=== PATIENT | female | born 1985 | race African-American/Black ===

== ENCOUNTER → 2016-07-22 | Outpatient (CLI) | payer OTHER ==
[2016-07-22 14:10] LABS: TOTAL PROTEIN,URINE 46.1 mg/dl (0-11.9)
== END ==
LOC: LAB 12:49
PROVIDERS: ATTEND Specialist
DX: Z34.80 Encounter for supervision of other normal pregnancy, unspecified trimester (principal); R03.0 Elevated blood-pressure reading, without diagnosis of hypertension
CPT/HCPCS: 81050; 84157

== ENCOUNTER → 2016-08-03 | Outpatient (CLI) | payer OTHER ==
[2016-08-03 11:05] LABS: BASOPHILS % (AUTO) 0.4 % (0.2-1.0); EOSINOPHILS % (AUTO) 0.4 % (0.9-2.9); HEMATOCRIT 36.3 % (36.0-47.0); HEMOGLOBIN 12.3 g/dL (12.0-16.0); LYMPHOCYTES # (AUTO) 1.7 X10^3/uL (1.3-2.9); LYMPHOCYTES % (AUTO) 25.5 % (21.0-51.0); MEAN CORPUSCULAR HEMOGLOBIN 29.5 pg (27.0-34.0); MEAN CORPUSCULAR HGB CONC 33.9 g/dL (33.0-35.0); MEAN CORPUSCULAR VOLUME 86.9 fL (80.0-100.0); MEAN PLATELET VOLUME 11.8 fL (7.4-11.0); MONOCYTES # (AUTO) 0.7 x10^3/uL (0.3-0.8); MONOCYTES % (AUTO) 10.7 % (0.0-13.0); NEUTROPHILS # (AUTO) 4.1 x10^3/uL (2.2-4.8); PLATELET COUNT 151 X10^3/uL (150.0-450.0); RED BLOOD COUNT 4.18 X10^6/uL (3.5-5.4); RED CELL DISTRIBUTION WIDTH 13.4 % (11.6-16.5); WHITE BLOOD COUNT 6.5 X10^3/uL (3.6-10.0)
[2016-08-03 11:06] LABS: BILIRUBIN,URINE NEGATIVE (NEGATIVE); BLOOD/HEMOGLOBIN,URINE 3+ (NEGATIVE); GLUCOSE, URINE NEGATIVE (NEGATIVE); KETONES,URINE NEGATIVE (NEGATIVE); LEUKOCYTE ESTERASE ,URINE 1+ (NEGATIVE); NITRITES,URINE NEGATIVE (NEGATIVE); PROTEIN,URINE 4+ (NEGATIVE); UROBILINOGEN,URINE NORMAL (NORMAL)
[2016-08-03 11:13] LABS: APPEARANCE,URINE SLIGHTLY HAZY (CLEAR); BACTERIA,URINE TRACE /HPF (NEGATIVE); COLOR,URINE YELLOW (YELLOW); RBC,URINE 0-3 /HPF (NEGATIVE); SQUAMOUS EPITHELIAL CELL,UR MANY /HPF (NEGATIVE)
[2016-08-03 11:28] LABS: GIANT PLATELET NOTED; PLATELET MORPHOLOGY COMMENT ABNORMAL (NORMAL)
[2016-08-03 11:29] LABS: BLOOD UREA NITROGEN 5 mg/dL (7-18); CALCIUM 8.5 mg/dL (8.5-10.1); CARBON DIOXIDE 23.7 mmol/L (21-32); CHLORIDE 107 mmol/L (98-107); CREATININE 0.83 mg/dL (0.55-1.02); GLUCOSE 75 mg/dL (65-99); SODIUM 140 mmol/L (136-145); eGFR BLACK RACES > 60 (>60); eGFR NON BLACK RACES > 60 (>60)
== END ==
LOC: LAB 10:11
PROVIDERS: ATTEND Specialist
DX: Z01.818 Encounter for other preprocedural examination (principal); Z34.83 Encounter for supervision of other normal pregnancy, third trimester
CPT/HCPCS: 36415; 80048; 81001; 85025; 85610; 85730; 86592; 86850; 86900; 86901; 87086

== ENCOUNTER 2016-08-07 06:10 | Inpatient (IN) | payer OTHER ==
[2016-08-07] MEDS ORDERED: LR 1000 ML IV 1,000 ML IV ONE ×2 (06:41→07:18)
[2016-08-07] MEDS ORDERED: ANCEF VIAL 1 GM ONE (06:42)
[2016-08-07] MEDS ORDERED: NS 50 ML IV + SPIKE MINIBAG* 50 ML IV ONE (06:42)
[2016-08-07] MEDS ORDERED: ANCEF VIAL 1 GM 1 GM in NS 50 ML IV + SPIKE MINIBAG* 50 ML IV PRN (06:56)
[2016-08-07] MEDS ORDERED: D5 1/2 NS 1000 ML 1,000 ML IV SCH (06:56)
[2016-08-07] MEDS ORDERED: DURAMORPH ONE (07:08)
[2016-08-07] MEDS ORDERED: PEPCID 20 MG IV PREMIX* 20 MG/50 ML BAG IV ONE (07:08)
[2016-08-07] MEDS ORDERED: D5 1/2 NS 1000ML W PITOCIN 20 U/L 1,000 ML IV ONE (07:18)
[2016-08-07] MEDS ORDERED: NS IRRIGATION 1000 ML 1,000 ML IR ONE (08:15)
[2016-08-07 08:33] LABS: BILIRUBIN,URINE NEGATIVE (NEGATIVE); BLOOD/HEMOGLOBIN,URINE 4+ (NEGATIVE); GLUCOSE, URINE NEGATIVE (NEGATIVE); KETONES,URINE NEGATIVE (NEGATIVE); LEUKOCYTE ESTERASE ,URINE NEGATIVE (NEGATIVE); NITRITES,URINE NEGATIVE (NEGATIVE); PROTEIN,URINE 4+ (NEGATIVE); UROBILINOGEN,URINE NORMAL (NORMAL)
[2016-08-07] MEDS ORDERED: TORADOL 30 MG VIAL ONE (08:51)
[2016-08-07] MEDS ORDERED: PHENERGAN INJ 25 MG ONE (08:53)
[2016-08-07 08:55] LABS: APPEARANCE,URINE HAZY (CLEAR); BACTERIA,URINE TRACE /HPF (NEGATIVE); COLOR,URINE YELLOW (YELLOW); HYALINE CASTS, URINE FEW /LPF (NEGATIVE); MUCUS,URINE MODERATE /HPF (NEGATIVE); RENAL EPITHELIAL CELLS,URINE FEW /HPF (NEGATIVE); SQUAMOUS EPITHELIAL CELL,UR RARE /HPF (NEGATIVE)
[2016-08-07] MEDS ORDERED: PHENERGAN INJ 25 MG IVP PRN (08:56)
[2016-08-07] MEDS ORDERED: ZOFRAN INJ 4 MG VIAL IVP PRN ×2 (08:56→09:18)
[2016-08-07] MEDS ORDERED: BENADRYL INJ 50 MG VIAL IVP PRN ×2 (08:56→09:18)
[2016-08-07] MEDS ORDERED: REGLAN INJ 10 MG VIAL IVP PRN ×2 (08:56→09:18)
[2016-08-07] MEDS ORDERED: DILAUDID INJ ONE (09:10)
[2016-08-07] MEDS ORDERED: D5 1/2 NS 1000 ML 1,000 ML with PITOCIN 20 UNITS IV SCH ×2 (09:18)
[2016-08-07] MEDS ORDERED: PERCOCET TAB 5/325 MG PO PRN (09:18)
[2016-08-07] MEDS ORDERED: ADACEL TDaP IM ONE (09:18)
[2016-08-07] MEDS: NARCAN INJ IVP PRN ×3 (13:51→20:06)
[2016-08-07] MEDS: PRENATAL PLUS PO SCH (13:52)
[2016-08-07] MEDS: ZANTAC PO SCH ×2 (13:52→21:00)
[2016-08-07] MEDS ORDERED: REGLAN INJ 10 MG VIAL ONE (15:46)
[2016-08-07] MEDS ORDERED: XYLOCAINE 2 % (PLAIN) ONE (15:46)
[2016-08-07] MEDS ORDERED: NEO-SYNEPHRINE INJ ONE (15:46)
[2016-08-07] MEDS ORDERED: ZOFRAN INJ 4 MG VIAL ONE (15:46)
[2016-08-07] MEDS ORDERED: DIPRIVAN VIAL ONE (15:46)
[2016-08-07] MEDS ORDERED: PITOCIN ONE (15:46)
[2016-08-07] MEDS ORDERED: EPHEDRINE SULFATE INJ ONE (15:46)
[2016-08-07] MEDS: TORADOL 30 MG VIAL IVP PRN (17:35)
[2016-08-08] MEDS: TORADOL 30 MG VIAL IVP PRN (00:33)
[2016-08-08] MEDS: NARCAN INJ IVP PRN (00:34)
[2016-08-08 05:24] LABS: HEMOGLOBIN 11.9 g/dL (12.0-16.0)
[2016-08-08] MEDS: MYLICON TAB 80 MG CHEW PO PRN ×2 (05:45→21:26)
[2016-08-08] MEDS ORDERED: BENADRYL CAP/TAB 25 MG PO PRN (07:54)
[2016-08-08] MEDS: VALTREX TAB 1 GM PO SCH (10:08)
[2016-08-08] MEDS: COLACE CAP 100 MG PO SCH ×2 (10:09→21:24)
[2016-08-08] MEDS: ZANTAC PO SCH ×2 (10:09→21:24)
[2016-08-08] MEDS: PRENATAL PLUS PO SCH (10:09)
[2016-08-08] MEDS: PERCOCET TAB 5/325 MG PO PRN ×2 (10:10→18:42)
[2016-08-08] MEDS: MOTRIN TAB 800 MG PO PRN ×2 (13:59→18:43)
[2016-08-08] MEDS: BACTROBAN OINT TOP SCH (21:24)
[2016-08-09] MEDS: PERCOCET TAB 5/325 MG PO PRN ×2 (01:30→09:05)
[2016-08-09] MEDS: BACTROBAN OINT TOP SCH ×2 (06:10→14:11)
[2016-08-09] MEDS: PRENATAL PLUS PO SCH (09:06)
[2016-08-09] MEDS: MYLICON TAB 80 MG CHEW PO PRN (09:06)
[2016-08-09] MEDS: VALTREX TAB 1 GM PO SCH (09:06)
[2016-08-09] MEDS: ZANTAC PO SCH (09:07)
[2016-08-09] MEDS: COLACE CAP 100 MG PO SCH (09:07)
[2016-08-09 14:09] VITALS: BP 137/87
== END 2016-08-09 15:14 | disposition home or self-care (01) | DRG 766 ==
LOC: LD 06:10 → MED/SURG 09:17
PROVIDERS: ADMIT Specialist; ATTEND Specialist
PROC: 0UB70ZZ Excision of Bilateral Fallopian Tubes, Open Approach (ICD-10-PCS; 2016-08-07)
PROC: 10D00Z1 Extraction of Products of Conception, Low, Open Approach (ICD-10-PCS; principal; 2016-08-07 07:30)
DX: O13.3 Gestational [pregnancy-induced] hypertension without significant proteinuria, third trimester (principal); O34.211 Maternal care for low transverse scar from previous cesarean delivery; N85.8 Other specified noninflammatory disorders of uterus; Z37.0 Single live birth; Z30.2 Encounter for sterilization; O26.893 Other specified pregnancy related conditions, third trimester
CPT/HCPCS: 36415; 81001; 85014; 85018; A4216; A4222; S0028; S0197; J0690; J1170; J1200; J1885; J2001; J2310; J2370; J2405; J2550; J2590; J2765; J3490; J7120